=== PATIENT | female | born 1950 | race African-American/Black ===

== ENCOUNTER → 2018-07-14 | Outpatient (CLI) | payer OTHER ==
[~2018-07-14] VITALS: Ht 165.1 cm; Wt 124.7 kg
[~2018-07-14] MED LIST: AMARYL4 MG PO; ATENOLOL 50MG T50 M1 PO; LAMICTAL100 MG PO; METFORMIN HCL1000 MG PO; MIRALAX17 GM PO; NAPROSYN500 MG PO; OMEPRAZOLE 20 M20 M1 PO; REGLAN 10 MG TA10 MG PO; TOBRAMYCIN-DEXAM5 ML OPHTHALMIC; TOLTERODINE TART4 MG PO; TRULICITY0.75 MG/0. SUBQ; ZANAFLEX2 MG PO
--- NOTE | ~2018-07-14 | HPC ---
[facility] [address] [place] [address] PAIN MANAGEMENT CONSULTATION Name: CARLOS ALDRICH Room #: [facility] Malena.#: [id number] Admission: 07/14/18 ������������������ Attend Phys: Dyllan Gomes MD Discharge: ������������������ Date of : 48 Report #: [id number] THIS REPORT FOR: //name// CC: DOREEN LOO [place] Box NO PCP Dyllan Gomes DATE OF SERVICE: 07/14/2018 CHIEF COMPLAINT: Excruciating right sacroiliac pain. The patient came to me today from Dr. Loo who diagnosed sacroiliac joint pain. There was no specific injury or no trauma. She simply began experiencing sharp and tense, piercing pain directly overlying the right posterior superior iliac spine and radiating along the sacroiliac joint. It is made worse with any movement and indeed, she came to our clinic today walking with a cane, moaning and groaning. She has found nothing to alleviate the pain. She scores it as a 10/10 on many occasions over the last 5 days. She has been given some gabapentin and tizanidine, neither of which has provided much sustained improvement. Other medications include metoclopramide, omeprazole, lamotrigine, metformin, atenolol, tolterodine and she has some naproxen for use b.i.d. ALLERGIES: PHENERGAN AND PROMETHAZINE. PAST MEDICAL HISTORY: She is morbidly obese, has a history of type 2 diabetes. She has fatty liver and a history of breast cancer. She had a lumpectomy followed by radiation. She has had colon resection as well. She suffers from hidradenitis. SOCIAL HISTORY: She denies tobacco and alcohol. She is retired, lives independently. This is a very debilitating presentation for her and is very atypical, she reports. REVIEW OF SYSTEMS: Positive for chest pains and palpitations. She has dyspnea on exertion and she also has shortness of breath when lying flat. She has frequent cough, constipation, abdominal pain and some incontinence on occasion, this is chronic. She reports memory loss and confusion as well as a history of depression. I did not pursue these complaints during today's add-on visit. PHYSICAL EXAMINATION: GENERAL: She is a pleasant, but obviously very uncomfortable 68-year-old female. VITAL SIGNS: Her blood pressure is 125/66, her heart rate is 70, respirations [facility] [address] [place] [address] PAIN MANAGEMENT CONSULTATION Name: CARLOS ALDRICH Room #: [facility] Malena.#: [id number] Admission: 07/14/18 ������������������ Attend Phys: Dyllan Gomes MD Discharge: ������������������ Date of : 48 Report #: [id number] 16, O2 sat 98%. She is 5 feet 5 inches and her BMI is 45.8. She is able to independently move from sitting to standing position, but uses a cane. It is hard for her to get up and down with her weight. She moans as she moves and as she walks. CHEST: Clear. CARDIAC: Rhythm is regular without murmur. She has marked tenderness along the sacroiliac joint. Her MANNY performed is positive for significant reproduction of pain along the sacroiliac joint without radiation. IMPRESSION: Sacroiliac joint pain, sacroiliitis. I discussed with her the injection that may provide us both diagnostic and therapeutic benefits. She is anxious to proceed. PROCEDURE: She was then taken to fluoroscopic suite, placed prone, skin prepped with ChloraPrep. Skin anesthetized over the sacroiliac joint. A 22-gauge needle was advanced into the posterior inferior capsule of the joint and the needle was repositioned until I obtain an arthrogram. I then injected 2 mL of 0.5% bupivacaine mixed with 40 mg of triamcinolone. I also injected a bit along the posterior table of the sacrum. She was taken to recovery room where her pain score had modified significantly from a 10/10 to a 2/10 and she was much more comfortable and appreciated. Followup visit is planned on an as needed basis. ��������������������������������������������� ���������������������������������������� By: ��������������������������������������������� [id number] Dyllan Gomes MD /nt
[2018-07-14 15:36] VITALS: BP 125/66
--- NOTE | 2018-07-14 15:53 | NUR ---
Pain Clinic Assessment: 1. History of Osteoarthritis: History of Rheumatoid Arthritis: 2. Height: 5 ft. 5 in. 165.1 cm. Weight: 275.0 lb. oz. 124.740 kg. Patient's BMI: 45.8 3. Vital Signs: BP: 125/66 Pulse: 70 Resp: 16 Temp: 02 Sat: 98 ECG Mon: 4. Pain Intensity: 9 5. Fall Risk: Dizziness: Y Needs help standing or walking: Y Fallen in the last 3 months: N Fall risk comments: 6. Patient on Blood Thinner: None 7. History of Hypertension: N 8. Opioid Therapy greater than 6 weeks: N Opiate Contract Signed: 9. Risk Assessment Tool Provided: LOW 10. Functional Assessment Tool: 64/70 11. Recreational Drug Use: Never Drug Type: Tobacco Use: Never Smoker Tobacco Type: Amount or Packs/day: How Many Years: Alcohol Use: No Frequency: Quant:
== END | disposition home or self-care (01) ==
LOC: PAIN 12:13
DX: M53.3 Sacrococcygeal disorders, not elsewhere classified (principal); E11.9 Type 2 diabetes mellitus without complications; F32.9 Major depressive disorder, single episode, unspecified; E66.01 Morbid (severe) obesity due to excess calories; Z85.3 Personal history of malignant neoplasm of breast; Z98.890 Other specified postprocedural states; Z98.0 Intestinal bypass and anastomosis status; Z79.899 Other long term (current) drug therapy; Z68.42 Body mass index [BMI] 45.0-49.9, adult